=== PATIENT | male | born 1995 | race Two or more races ===

== ENCOUNTER 2019-03-03 15:03 | Emergency (ER) | payer OTHER, MEDICAID ==
[~2019-03-03] VITALS: Ht 162.6 cm; Wt 62.1 kg
[2019-03-03 15:13] VITALS: BP 142/71
[2019-03-03] MEDS ORDERED: XANAX1 MG ORAL (15:18)
--- NOTE | 2019-03-03 15:28 | Emergency Room Report ---
History of Present Illness General Chief Complaint: Behavioral Complaint Source: Patient Present Illness HPI 23-year-old male history of insomnia, anxiety, seizures presents with 2 weeks of intermittent insomnia, present chest pain shortness of breath, no known aggravating relieving factors, he states he is stressed today because he may not be able to make his appointment for his neurologist tomorrow at 10 AM he states he might oversleep and wants something to knock him out tonight before he goes to bed Allergies: Coded Allergies: No Known Allergies (Unverified , 03/03/19) Patient History Past Medical History: see triage record Reviewed Nursing Documentation: PMH: Agreed; PSxH: Agreed Nursing Documentation-PMH Past Medical History: No History, Except For History Of Psychiatric Problem: Yes - anxiety Review of Systems All Other Systems: negative except mentioned in HPI Physical Exam Vital Signs Date Time Temp Pulse Resp B/P (MAP) Pulse Ox O2 Delivery O2 Flow Rate FiO2 03/03/19 15:13 97.9 94 20 142/71 (94) 97 Room Air Sp02 EP Interpretation: reviewed, normal General Appearance: well appearing, no apparent distress, alert Head: normocephalic, atraumatic Eyes: bilateral eye PERRL, bilateral eye EOMI ENT: uvula midline, moist mucus membranes Neck: supple, thyroid normal, supple/symm/no masses Respiratory: lungs clear, no respiratory distress, no retraction, no accessory muscle use Cardiovascular #1: normal peripheral pulses, regular rate, rhythm, no edema, no gallop, no murmur Gastrointestinal: non tender, soft, no guarding, no rebound Musculoskeletal: normal inspection Neurologic: alert, oriented x3 Psychiatric: no suicidal/homicidal ideation, anxious Skin: no rash, warm/dry Medical Decision Making Diagnostic Impression: Primary Impression: Insomnia disorder Qualified Codes: G47.00 - Insomnia, unspecified ER Course 23-year-old male presents with insomnia, a cures report was ran, patient had prescription for Xanax 02/25/2019, patient counseled about proper sleep hygiene, counseled patient that he cannot receive a prescription for Xanax here because he already received one. Disposition home with return precautions Last Vital Signs Date Time Temp Pulse Resp B/P (MAP) Pulse Ox O2 Delivery O2 Flow Rate FiO2 03/03/19 15:19 87 15 Room Air 03/03/19 15:13 97.9 142/71 97 Disposition: HOME, SELF-CARE Condition: Stable Referrals: [facility] Valeriy Terry. [facility] Patient Instructions: Insomnia Additional Instructions: The patient was provided with discharge instructions, notified to follow-up with a primary care doctor and or specialist in the next 24-48 hours, and to return to the ED if they have worsening of their symptoms. Please note that this report is being documented using [employer] technology. This can lead to erroneous entry secondary to incorrect interpretation by the dictating instrument. Guille Munson MD Mar 03, 2019 15:28
[2019-03-03 15:30] VITALS: BP 139/78
--- NOTE | 2019-03-03 15:30 | NUR ---
ER DISCHARGE NOTE: Pt was seen due to anxiety x 2 weeks. Patient is cleared to be discharged per ERMD, pt is aox4, on room air, with stable vital signs. pt was given dc instructions, pt was able to verbalize understanding, pt id band removed. pt is able to ambulate with steady gait. pt took all belongings.
== END 2019-03-03 16:00 | disposition home or self-care (01) ==
LOC: EMR 15:49
DX: G47.00 Insomnia, unspecified (principal); F41.9 Anxiety disorder, unspecified
CPT/HCPCS: 99282